=== PATIENT | female | born 1960 | race Caucasian/White ===

== ENCOUNTER 2021-02-22 07:25 | Day surgery (SDC) | payer OTHER, SELFPAY ==
[~2021-02-22] VITALS: Ht 154.9 cm; Wt 74.4 kg
[2021-02-22] MEDS ORDERED: diphenhydrAMINE 50 MG/ML VIAL ONE (10:26)
[2021-02-22] MEDS ORDERED: fentaNYL citrate 0.05 MG/ML VIAL ONE (10:27)
[2021-02-22] MEDS ORDERED: MIDAZOLAM 5 MG/5 ML VIAL ONE (10:27)
[2021-02-22] MEDS ORDERED: fentaNYL citrate 0.05 MG/ML VIAL IVP ONE (10:50)
[2021-02-22] MEDS ORDERED: MIDAZOLAM 2 MG/2 ML VIAL IVP ONE (10:50)
== END 2021-02-22 11:37 | disposition home or self-care (01) ==
LOC: MDS 07:25 → MMU 07:25 → MDS 11:37
PROVIDERS: ATTEND Internal Medicine Gastroenterology
DX: K62.5 Hemorrhage of anus and rectum (principal); K59.00 Constipation, unspecified; K62.1 Rectal polyp; K64.8 Other hemorrhoids; I10 Essential (primary) hypertension; E11.9 Type 2 diabetes mellitus without complications; Z20.822 Contact with and (suspected) exposure to COVID-19; E78.00 Pure hypercholesterolemia, unspecified; Z79.82 Long term (current) use of aspirin; Z79.899 Other long term (current) drug therapy
CPT/HCPCS: 43239; 45385; 87426; J2250; J3010; J1200